=== PATIENT | male | born 1995 | race Two or more races ===

== ENCOUNTER 2025-08-16 18:14 | Inpatient (IN) ==
--- NOTE | 2025-08-16 18:25 | Emergency Department Note ---
Impression & Plan Seizure, Acute pain of left shoulder, Hydronephrosis with obstructing calculus, Abdominal pain ED Provider Note NAME: ALEX [id number] VIKRAM AGE: 30 SEX: M : 1995 ARRIVES VIA: Ambulance INFORMANT: Patient,EMS ED PROVIDER(S): Albert Pascal DO CHIEF COMPLAINT: Seizure HPI: The patient is a 30-year-old male who presented to the emergency department from the [facility] for an evaluation. The patient had 2 seizures prior to arrival. It is unclear if the patient has seizure history. There is no reported seizure history there is no reported trauma. The patient arrives to the emergency department and he is very uncomfortable appearing. The patient does not speak Bulgarian. The network support manager line was used. ROS: See above HPI for pertinent positives & negatives. A total of 10 systems reviewed and were otherwise negative. PAST MEDICAL HISTORY: See Below PAST SURGICAL HISTORY: See Below FAMILY HISTORY: See Below SOCIAL HISTORY: See Below HOME MEDICATIONS: See Below ALLERGIES: See Below VITALS: See Below PHYSICAL EXAMINATION: GENERAL: The patient is awake and alert. He is very anxious and appears uncomfortable. EYES: The conjunctivae are injected bilaterally . The pupils are round and reactive. EARS, NOSE, MOUTH AND THROAT: The nose is without any evidence of any deformity. NECK: The neck is nontender and supple. RESPIRATORY: Normal respiratory effort is noted there is no evidence of wheezing rhonchi or rales CARDIOVASCULAR: Regular rate and rhythm noted there no murmurs rubs or gallops normal S1 normal S2. GASTROINTESTINAL: The abdomen is soft and mildly distended. There is diffuse tenderness to palpation. MUSCULOSKELETAL/EXTREMITIES: There is no evidence of gross deformity full range of motion is noted in the hips and shoulders. SKIN: There is no obvious evidence of any rash. There are no petechiae, pallor or cyanosis noted. NEUROLOGIC: Patient is awake alert and oriented x3. Patellar tendon reflexes were 2+ bilaterally. MEDICAL DECISION MAKING: The patient is a 30-year-old male who [facility]. The patient has been there for approximately 2 months. Before that he was living in [place] for approximately 1 year. The patient is Mohawk-speaking and the network support manager line was used. The patient initially arrived and appeared very uncomfortable. I was not sure if he was postictal as he had 2 reported [facility]. The patient was treated with IV fluids. Ultimately he was also treated with pain medication given the presence of a very large ureteral calculus with hydronephrosis. I would wonder if the patient was actually having severe pain and what they viewed at the present could be consistent with syncope rather than seizure. I discussed patient's laboratory and radiographic studies with him. Given his findings I discussed his condition with the on-call [facility] hospitalist. They have agreed to evaluate the patient in the emergency department for further management and disposition. Triage Nursing notes reviewed. Prior medical records reviewed Vital Signs: reviewed and remarkable for no significant abnormalities Differential diagnosis: Epilepsy, infection, hypoglycemia, electrolyte abnormalities, cardiac sources, intracerebral event, trauma, toxicologic, neurologic, syncope, as well as other pathologies. ER treatment provided: See below Diagnostics interpreted by me: ECG: EKG was obtained in the emergency department. My interpretation is normal sinus rhythm at 91 bpm. There is no ectopy. There is no acute ST segment abnormalities noted. QTc was 425 ms. Cardiac Monitoring: An order was placed for continuous cardiac monitoring. The monitor shows a rate of 77 bpm with sinus rhythm. Laboratory studies: As stated above and show below. Imaging studies: See below. Radiographic imaging was reviewed by myself Consultation(s): I discussed this case with Dr. Bhatt [facility] Past Med/Surg History Problem List (Updated 08/16/25 @ 21:07 by Kym Blanco PA-C) Abdominal pain (Acute) Hydronephrosis with obstructing calculus (Acute) Acute pain of left shoulder (Acute) Seizure (Acute) Medical History (Updated 08/16/25 @ 21:07 by Kym Blanco PA-C) No pertinent past medical history Surgical History No pertinent past surgical history Social History (Updated 08/16/25 @ 21:08 by Kym Blanco PA-C) Smoking Status: Former smoker Tobacco Type: E-cigarettes / Vaping Allergies Allergies Allergy/AdvReac Type Severity Reaction Status Date / Time No Known Allergies Allergy Unverified 08/16/25 21:05 Home Meds Home Medications Medication Instructions Recorded Confirmed No Known Home Medications 08/16/25 08/16/25 Results & Data (ED) Vital Signs Vital Signs - 24 hr 08/16/25 18:25 08/16/25 18:37 08/16/25 18:57 Temperature 37.1 C Temperature Source Oral Pulse Rate 95 H 85 86 Pulse Rate [Apical] Respiratory Rate 21 15 Respiratory Effort / Characteristics Spontaneous Labored Respiratory Depth Normal Respiratory Pattern Regular Blood Pressure 169/109 H 143/96 H Blood Pressure [Right Arm] Blood Pressure Mean 129 115 Blood Pressure Mean [Right Arm] Blood Pressure Position [Right Arm] Pulse Oximetry 100 98 Oxygen Delivery Method Room Air Room Air Sepsis Recent Fever Within 48 Hours No Sepsis New/Unexplained Change in Mental Status N/A Sepsis Action Taken by Nursing No Action Required 08/16/25 20:02 08/16/25 20:02 08/16/25 20:31 Temperature Temperature Source Pulse Rate 79 Pulse Rate [Apical] 77 Respiratory Rate 18 18 Respiratory Effort / Characteristics Non-Labored Spontaneous Respiratory Depth Normal Respiratory Pattern Regular Blood Pressure 133/87 Blood Pressure [Right Arm] 128/83 Blood Pressure Mean 99 Blood Pressure Mean [Right Arm] 98 Blood Pressure Position [Right Arm] Lying Pulse Oximetry 97 98 Oxygen Delivery Method Room Air Room Air Sepsis Recent Fever Within 48 Hours Sepsis New/Unexplained Change in Mental Status Sepsis Action Taken by [facility] Medications Current Medication List: was personally reviewed by me Laboratory Data Attestation: I reviewed the patient's lab results. 08/16/25 18:26 08/16/25 18:26 Lab Results 08/16/25 08/16/25 08/16/25 Range/Units 18:26 18:35 Unknown WBC 14.40 H (4.8-10.8) K/ul RBC 5.62 (4.70-6.10) M/uL Hgb 15.6 (14.0-18.0) g/dL POC Hgb 16.3 (14.0-18.0) g/dl Hct 44.5 (42.0-52.0) % POC Hct 48 (42-52) % MCV 79.2 L (80.0-100.0) fL MCH 27.8 (25.0-34.0) pg MCHC 35.1 (32.0-36.0) g/dL RDW Std Deviation 37.2 (36.4-46.3) fL RDW Coeff of Omid 13.1 (11.5-14.5) % Plt Count 340 (130-400) K/uL MPV 9.4 (9.4-12.4) fL Immature Gran % (Auto) 0.3 % Neut % (Auto) 76.6 % Lymph % (Auto) 16.3 % [facility] % (Auto) 6.4 % Eos % (Auto) 0.1 % Baso % (Auto) 0.3 % Neut # (Auto) 11.02 H (1.40-6.50) K/uL Lymph # (Auto) 2.35 (1.20-3.40) K/uL [facility] # (Auto) 0.92 H (0.11-0.59) K/uL Eos # (Auto) 0.02 (0.00-0.50) K/uL Baso # (Auto) 0.04 (0.00-0.20) K/uL Immature Gran # (Auto) 0.05 (0.01-0.20) K/uL PT 10.8 (9.0-12.0) Seconds INR 1.0 (0.9-1.1) APTT 25 (21-31) Seconds PTT Ratio 0.9 VBG pH 7.53 H (7.36-7.41) VBG pCO2 29 L (38-50) mmHg VBG pO2 41 mmHg VBG HCO3 24 mmol/L VBG O2 Saturation 74.8 % VBG Base Excess 2.4 mEq/L POC Sodium 141 (135-144) mmol/L Sodium 139 (136-145) mmol/L POC Potassium 3.4 (3.3-5.0) mmol/L Potassium 3.5 (3.5-5.1) mmol/L POC Chloride 104 (101-112) mmol/L Chloride 105 (98-107) mmol/L Carbon Dioxide 22 (21-32) mmol/L POC Total CO2 20 L (24-31) mmol/L Anion Gap 12 H (3-11) POC Anion Gap 22.0 (16-25) mmol/L POC BUN 10 (7-18) mg/dl BUN 11 (6-23) mg/dl Creatinine 1.24 (0.6-1.4) mg/dl POC Creatinine 1.3 (0.6-1.3) mg/dl Est Cr Clr Drug Dosing 93.6 ml/min eGFR 80.71 BUN/Creatinine Ratio 8.9 L (10-20) Glucose 100 H (70-99(Fasting)) mg/dl POC Glucose (other) 99 (70-99) mg/dl Osmolality 291 (280-300) mOsm/kg Calcium 9.5 (8.6-10.3) mg/dl POC Ioniz Calcium Vivi 1.14 (1.12-1.32) mmol/l Magnesium 2.0 (1.7-2.4) mg/dl Total Bilirubin 1.2 H (0.2-1.0) mg/dl AST 26 (13-39) U/L ALT 63 H (7-52) U/L Alkaline Phosphatase 96 (34-104) U/L Total Creatine Kinase 176 (30-223) U/L Troponin I High Sens 3.3 (0-20) pg/ml Total Protein 8.2 (6.0-8.3) gm/dl Albumin 4.5 (3.4-5.0) gm/dl Globulin 3.7 (2.5-4.0) gm/dl Albumin/Globulin Ratio 1.2 (0.9-2) Lipase 20 (11-82) U/L Procalcitonin 0.02 (0-0.5) ng/ml TSH 1.149 (0.300-4.500) uIu/ml Urine Color Yellow Urine Appearance Cloudy A (Clear) Urine pH >= 9.0 H (4.5-7.5) Ur Specific [place] 1.020 (1.000-1.030) Urine Protein 1+ H (Negative) Urine Glucose (UA) Negative (Negative) Urine Ketones Negative (Negative) Urine Blood Trace H (Negative) Urine Nitrite Negative (Negative) Urine Bilirubin Negative (Negative) Urine Urobilinogen Negative (Negative) Ur Leukocyte Esterase Trace H (Negative) Urine WBC (Auto) 0-5 (0-5) /hpf Urine RBC (Auto) 11-20 H (0-2) /hpf U Hyaline Cast (Auto) 0-2 (0-2) /lpf U Epithel Cells (Auto) 0-2 (0-2) /hpf Urine Bacteria (Auto) None Seen (None Seen) Urine Osmolality 762 (500-800) mOsm/kg Urine Comment Urine Opiates Screen Neg (Neg) Ur Methadone, Qual Neg (Neg) Urine Fentanyl Screen Neg (Neg) Urine Barbiturates Neg (Neg) Ur Phencyclidine (PCP) Neg (Neg) U Amphetamin/Meth Scrn Neg (Neg) MDMA (Ecstasy) Screen Neg (Neg) U Benzodiazepines Scrn Neg (Neg) Ur Cocaine Metabolite Neg (Neg) U Marijuana (THC) Screen Neg (Neg) Administered Medications Potassium Chloride/Sodium Chloride (Normal Saline W/20 Meq Kcl) 20 meq in 1,000 mls @ 75 mls/hr IV .[id number] ONE Stop: 08/17/25 09:59 Last Admin: 08/16/25 21:10 Dose: 75 mls/hr Documented By: KAYCEE Discontinued Medications Sodium Chloride (Nss) 1,000 mls @ 999 mls/hr IV .[id number] MAYA Stop: 08/16/25 19:30 Last Infusion: 08/16/25 19:39 Dose: Infused Documented By: Admin: 08/16/25 18:30 Dose: 999 mls/hr Documented By: JUAN CARLOS Ioversol (Optiray 320 125ml) 115 ml IV ONCE ONE Stop: 08/16/25 19:16 Last Admin: 08/16/25 19:16 Dose: 115 ml Documented By: LUIS Levetiracetam (Levetiracetam 500 Mg/5 Ml Vial) 2,000 mg IV NOW STA Stop: 08/16/25 18:19 Last Admin: 08/16/25 18:35 Dose: 2,000 mg Documented By: JUAN CARLOS Morphine Sulfate (Morphine Sulfate 4 Mg/Ml 1 Ml Carp\Vial) 4 mg IV NOW STA Stop: 08/16/25 19:38 Last Admin: 08/16/25 19:43 Dose: 4 mg Documented By: Ondansetron HCl (Ondansetron Inj 2 Mg/Ml 2 Ml Vial) 4 mg IV NOW STA Stop: 08/16/25 19:38 Last Admin: 08/16/25 19:43 Dose: 4 mg Documented By: Imaging Data Attestation: I personally reviewed and interpreted this imaging study as follows: My Impression: CT of the brain was obtained in the emergency department. My interpretation is no intracranial hemorrhage or mass effect, final report below. Radiologist's Impression: Abdomen/Pelvis CT 08/16/25 18:18 EXAMINATION: CT of the abdomen and pelvis performed after the administration of IV contrast TECHNIQUE: Helical CT images from the lung bases through the symphysis pubis were obtained with contrast. Coronal and sagittal reformatted images were generated at a workstation for further assessment. Dose reduction techniques were achieved by using automatic exposure control and/or adjustment of mA and/or kV according to patient size and/or use of iterative reconstruction technique. COMPARISON: None HISTORY: Abdominal pain FINDINGS: Lower chest: No consolidation. No pleural effusion or pneumothorax. Liver: No suspicious liver lesions. Portal veins appear patent. Gallbladder: No gallstones. No evidence of acute cholecystitis. Spleen: Normal size. Pancreas: No suspicious pancreatic lesions. The pancreatic duct is not dilated. Adrenal glands: No adrenal nodules. Kidneys: Obstructing 10 x 6 mm stone at the right ureteropelvic junction. There is moderate right hydronephrosis, as well as right renal pelvic urothelial thickening and hyperenhancement. There is surrounding inflammatory fat stranding. Right renal swelling and decreased enhancement. Few additional tiny nonobstructing right renal stones are seen. Normal left kidney. Bladder / Pelvic organs: Unremarkable. Bowel: No bowel obstruction. No abnormal bowel wall thickening. The appendix is unremarkable. Lymph nodes: No retroperitoneal, mesenteric, or pelvic lymphadenopathy. Peritoneum / Retroperitoneum: No free fluid or air within the abdomen. Vessels: No infrarenal aortic aneurysm. Bones and soft tissues: No suspicious lesion in the bones. IMPRESSION: 10 x 6 mm stone at the right ureteropelvic junction. There is moderate right hydronephrosis, as well as right renal pelvic urothelial thickening and hyperenhancement. There is surrounding inflammatory fat stranding. Electronically signed by Pipe Bautista 08-16-2025 7:40 PM Shoulder X-Ray 08/16/25 18:18 Exam: Right shoulder. Reason for exam: Trauma Previous studies: None FINDINGS: No acute fracture, dislocation or destructive lesion noted. IMPRESSION: Negative for acute bony trauma right shoulder. Electronically signed by Vignesh Ruelas 08-16-2025 8:41 PM Shoulder X-Ray 08/16/25 18:18 Exam: Left shoulder. Reason for exam: Trauma Previous studies: None FINDINGS: Marked abnormal widening of the acromioclavicular joint with an irregular interposed bony fragment. The age of this abnormality is uncertain. Could represent acute fracture and AC separation versus old separation injury with dystrophic ossification. Correlation with any current clinical tenderness recommended. The glenohumeral articulation appears intact. IMPRESSION: Markedly abnormal appearance of the acromioclavicular joint. The joint space is markedly widened with penciling of the distal clavicle and interposed irregular bony fragment. Findings might represent previous and/or current acromioclavicular traumatic separation with fracture fragment versus dystrophic calcification. Possibility of postsurgical changes considered as well. Correlation to clinical history and current point of tenderness recommended. Further definitive imaging evaluation could be obtained with MRI study. Electronically signed by Vignesh Ruelas 08-16-2025 8:[address] 08/16/25 18:19 CT cervical spine without IV contrast History: Trauma Comparison: None Technique: Using multidetector thin collimation helical acquisition technique, axial, coronal and sagittal CT images through the cervical spine were obtained without intravenous contrast. Dose reduction techniques were achieved by using automatic exposure control and/or adjustment of mA and/or kV according to patient size and/or use of iterative reconstruction technique. Findings: The cervical vertebrae are normally aligned. Straightened cervical lordosis. No acute fracture or subluxation. No prevertebral edema. There is no disc height narrowing at any level. The findings on a level by level basis are as follows: C2-3: No spinal canal or neural foraminal stenosis C3-4: No spinal canal or neural foraminal stenosis C4-5: No spinal canal or neural foraminal stenosis C5-6: No spinal canal or neural foraminal stenosis C6-7: No spinal canal or neural foraminal stenosis C7-1: No spinal canal or neural foraminal stenosis No abnormality of the paraspinous soft tissues. Impression: No acute fracture or traumatic subluxation. Electronically signed by Pipe Bautista 08-16-2025 7:36 PM Chest CTA 08/16/25 18:19 CT pulmonary angiogram with IV contrast History: Chest pain COMPARISON: None TECHNIQUE: CT angiography of the chest was performed without IV contrast followed by IV contrast, including 3D post processing CTA image reconstruction. Dose reduction techniques were achieved by using automatic exposure control and/or adjustment of mA and/or kV according to patient size and/or use of iterative reconstruction technique. FINDINGS: Diagnostic quality: Adequate There is no evidence for pulmonary embolism. The heart is not enlarged. There is no pericardial effusion. There are no abnormally enlarged hilar or mediastinal lymph nodes. The central tracheobronchial tree is clear. The lungs are clear. There is no pleural effusion. Limited visualized upper abdomen. No destructive osseous changes are seen. IMPRESSION: No evidence for pulmonary embolism. Electronically signed by Pipe Bautista 08-16-2025 7:[address] 08/16/25 18:19 CT head without contrast History: Seizure Comparison: None Technique: Using multidetector thin collimation helical acquisition technique, axial, coronal and sagittal CT images from the skull base to the vertex were obtained without intravenous contrast. Dose reduction techniques were achieved by using automatic exposure control and/or adjustment of mA and/or kV according to patient size and/or use of iterative reconstruction technique. Findings: No intracranial hemorrhage, mass-effect, or midline shift. The ventricles are proportionate to the cerebral sulci. The giron to white matter differentiation of the cerebral hemispheres is preserved. The basal cisterns are patent. The visualized paranasal sinuses are clear. Mastoid air cells are clear. Impression: No acute intracranial pathology. Electronically signed by Pipe Bautista 08-16-2025 7:33 PM Discharge Plan Visit Data Chief Complaint: Seizure Stated Complaint: no history of seizures ED Provider: Albert Pascal Discharge Problem: Seizure, Acute pain of left shoulder, Hydronephrosis with obstructing calculus, Abdominal pain Patient Disposition: Being Evaluated by Hospitalist Condition: Fair Forms Stand Alone Forms: [facility] 1Cast Prescriptions Prescriptions: No Action No Known Home Medications Referrals Referrals: PCP,NO [Physician] -
[2025-08-16] MEDS: SODIUM CHLORIDE 0.9% 1,000 ML IV SCH (18:30)
[2025-08-16 18:49] LABS: Base Excess VBG 2.4 mEq/L; HCO3 VBG 24 mmol/L; Oxygen Saturation VBG 74.8 %; PCO2 VBG 29 mmHg (38-50); PO2 VBG 41 mmHg; pH VBG 7.53 (7.36-7.41)
[2025-08-16 18:53] LABS: Hematocrit (blood only) 44.5 % (42.0-52.0); Hemoglobin 15.6 g/dL (14.0-18.0); Immature Granulocytes # (auto) 0.05 K/uL (0.01-0.20); Immature Granulocytes % (auto) 0.3 %; Mean Corpuscular Hemoglobin 27.8 pg (25.0-34.0); Mean Corpuscular Volume 79.2 fL (80.0-100.0); Platelet Count 340 K/uL (130-400); RDW Standard Deviation 37.2 fL (36.4-46.3); Red Blood Count 5.62 M/uL (4.70-6.10); White Blood Count 14.40 K/ul (4.8-10.8)
[2025-08-16 19:10] LABS: Alanine Aminotransferase 63.0 U/L (7-52); Albumin Globulin Ratio 1.2 (0.9-2); Albumin Level 4.5 gm/dl (3.4-5.0); Alkaline Phosphatase 96.0 U/L (34-104); Anion Gap 12.0 (3-11); Bilirubin,Total 1.2 mg/dl (0.2-1.0); Blood Urea Nitrogen 11.0 mg/dl (6-23); Calcium 9.5 mg/dl (8.6-10.3); Carbon Dioxide 22.0 mmol/L (21-32); Chloride 105.0 mmol/L (98-107); Creatine Kinase 176.0 U/L (30-223); Creatinine Clr Calc Pharmacy 93.6 ml/min; Globulin 3.7 gm/dl (2.5-4.0); Glucose 100.0 mg/dl (70-99(Fasting)); Lipase 20.0 U/L (11-82); Magnesium 2.0 mg/dl (1.7-2.4); Potassium 3.5 mmol/L (3.5-5.1); Sodium 139.0 mmol/L (136-145); Total Protein 8.2 gm/dl (6.0-8.3)
[2025-08-16] MEDS: OPTIRAY 320 125ml IV ONE (19:16)
[2025-08-16 19:22] LABS: INR 1.0 (0.9-1.1); Partial Thromboplastin Time 25 Seconds (21-31); Prothrombin Time 10.8 Seconds (9.0-12.0)
[2025-08-16 19:26] LABS: Thyroid Stimulating Hormone 1.149 uIu/ml (0.300-4.500)
[2025-08-16 19:31] LABS: Appearance Urine Cloudy (Clear); Bacteria Urine Automated None Seen (None Seen); Cast Urine Automated 0-2 /lpf (0-2); Epithelial Cell Urine Auto 0-2 /hpf (0-2); Glucose Urine UA Negative (Negative); WBC Urine Automated 0-5 /hpf (0-5)
--- NOTE | 2025-08-16 19:33 | CT Scan Report ---
CT head without contrast History: Seizure Comparison: None Technique: Using multidetector thin collimation helical acquisition technique, axial, coronal and sagittal CT images from the skull base to the vertex were obtained without intravenous contrast. Dose reduction techniques were achieved by using automatic exposure control and/or adjustment of mA and/or kV according to patient size and/or use of iterative reconstruction technique. Findings: No intracranial hemorrhage, mass-effect, or midline shift. The ventricles are proportionate to the cerebral sulci. The giron to white matter differentiation of the cerebral hemispheres is preserved. The basal cisterns are patent. The visualized paranasal sinuses are clear. Mastoid air cells are clear. Impression: No acute intracranial pathology. Electronically signed by Pipe Bautista 08-16-2025 7:33 PM
--- NOTE | 2025-08-16 19:34 | CT Scan Report ---
CT pulmonary angiogram with IV contrast History: Chest pain COMPARISON: None TECHNIQUE: CT angiography of the chest was performed without IV contrast followed by IV contrast, including 3D post processing CTA image reconstruction. Dose reduction techniques were achieved by using automatic exposure control and/or adjustment of mA and/or kV according to patient size and/or use of iterative reconstruction technique. FINDINGS: Diagnostic quality: Adequate There is no evidence for pulmonary embolism. The heart is not enlarged. There is no pericardial effusion. There are no abnormally enlarged hilar or mediastinal lymph nodes. The central tracheobronchial tree is clear. The lungs are clear. There is no pleural effusion. Limited visualized upper abdomen. No destructive osseous changes are seen. IMPRESSION: No evidence for pulmonary embolism. Electronically signed by Pipe Bautista 08-16-2025 7:34 PM
--- NOTE | 2025-08-16 19:36 | CT Scan Report ---
CT cervical spine without IV contrast History: Trauma Comparison: None Technique: Using multidetector thin collimation helical acquisition technique, axial, coronal and sagittal CT images through the cervical spine were obtained without intravenous contrast. Dose reduction techniques were achieved by using automatic exposure control and/or adjustment of mA and/or kV according to patient size and/or use of iterative reconstruction technique. Findings: The cervical vertebrae are normally aligned. Straightened cervical lordosis. No acute fracture or subluxation. No prevertebral edema. There is no disc height narrowing at any level. The findings on a level by level basis are as follows: C2-3: No spinal canal or neural foraminal stenosis C3-4: No spinal canal or neural foraminal stenosis C4-5: No spinal canal or neural foraminal stenosis C5-6: No spinal canal or neural foraminal stenosis C6-7: No spinal canal or neural foraminal stenosis C7-1: No spinal canal or neural foraminal stenosis No abnormality of the paraspinous soft tissues. Impression: No acute fracture or traumatic subluxation. Electronically signed by Pipe Bautista 08-16-2025 7:36 PM
--- NOTE | 2025-08-16 19:40 | CT Scan Report ---
EXAMINATION: CT of the abdomen and pelvis performed after the administration of IV contrast TECHNIQUE: Helical CT images from the lung bases through the symphysis pubis were obtained with contrast. Coronal and sagittal reformatted images were generated at a workstation for further assessment. Dose reduction techniques were achieved by using automatic exposure control and/or adjustment of mA and/or kV according to patient size and/or use of iterative reconstruction technique. COMPARISON: None HISTORY: Abdominal pain FINDINGS: Lower chest: No consolidation. No pleural effusion or pneumothorax. Liver: No suspicious liver lesions. Portal veins appear patent. Gallbladder: No gallstones. No evidence of acute cholecystitis. Spleen: Normal size. Pancreas: No suspicious pancreatic lesions. The pancreatic duct is not dilated. Adrenal glands: No adrenal nodules. Kidneys: Obstructing 10 x 6 mm stone at the right ureteropelvic junction. There is moderate right hydronephrosis, as well as right renal pelvic urothelial thickening and hyperenhancement. There is surrounding inflammatory fat stranding. Right renal swelling and decreased enhancement. Few additional tiny nonobstructing right renal stones are seen. Normal left kidney. Bladder / Pelvic organs: Unremarkable. Bowel: No bowel obstruction. No abnormal bowel wall thickening. The appendix is unremarkable. Lymph nodes: No retroperitoneal, mesenteric, or pelvic lymphadenopathy. Peritoneum / Retroperitoneum: No free fluid or air within the abdomen. Vessels: No infrarenal aortic aneurysm. Bones and soft tissues: No suspicious lesion in the bones. IMPRESSION: 10 x 6 mm stone at the right ureteropelvic junction. There is moderate right hydronephrosis, as well as right renal pelvic urothelial thickening and hyperenhancement. There is surrounding inflammatory fat stranding. Electronically signed by Pipe Bautista 08-16-2025 7:40 PM
[2025-08-16] MEDS: MoRPHine SULFATE 4 MG/ML 1 ML CARP\\VIAL IV STA (19:43)
[2025-08-16] MEDS: ONDANSETRON INJ 2 MG/ML 2 ML VIAL IV STA (19:43)
[2025-08-16 19:53] LABS: Amphetamines+Metham, Urine Neg (Neg); MDMA (Ecstacy), Urine Neg (Neg); Marijuana, Urine Neg (Neg)
--- NOTE | 2025-08-16 20:17 | History & Physical Report ---
Date of Service August 16, 2025 Assessment & Plan (1) Abdominal pain: (2) Hydronephrosis with obstructing calculus: (3) Left shoulder pain: Plan: #Possible Seizure-like activity HPI, PMH, SH, FH, PE completed by Kym Blanco PA-C Assessment and Plan per Dr Ribeiro. See addendum. History of Present Illness Chief Complaint: Shaking episode Primary Care Provider: [facility] Patient is 30 year old male without significant PMH presented to ER from [facility] for reported shaking episode today. Patient is Israeli speaking and interpreter translator used through language line. Patient reports this morning he woke up with diffuse abdominal pain, nausea, vomiting. He describes the abdominal pain as constant ache with intermittent stabbing that radiated up to chest. Rated pain 10 out of 10 on pain scale. He states he was also feeling dizzy. He reports trying to get evaluated by medical today at facility. He states the next thing he remembers is waking up with a lot of people around him. Denies loss control of bowel or bladder. Reports his tongue feels sore but denies any noted bleeding or tongue lacerations. This provider called and discussed patient with staff at [facility]. They report that patient was attempting to call for medical to be seen and asking officers to go to sick call when he "went down" and had "shaking of body and was not responding". Report states when medical came to evaluate patient his O2 sats noted dropped into 60's and his BSG was 114. When arrived to medical carpenter he only could say "yes or no" and then became tearful, and more responsive and he was able to follow commands. Patient denies diarrhea or constipation. He took Pepto-bismol from another detainee this morning without relief. Patient reports chronic left shoulder pain from prior injury. He reports past several days left shoulder pain has been increasing, worse with sleeping on it at night. He reports limited range of motion of left shoulder secondary to pain. He states past 1-2 weeks having trouble breathing at night only. Denies fever/chills, diaphoresis, diarrhea, constipation, hematemesis, melena, hematochezia, JONES, vision changes, palpitations, cough, sore throat, rhinorrhea, paresthesias, weakness, extremity edema, rashes, dysuria, urinary frequency, urinary retention, hematuria. Per [facility] staff patient has been at [facility] Facility since 06/2025 and had no prior medical evaluations or PMH. Patient denies history prior medical problems or surgical history. Denies significant FH including history of seizure or kidney stones. Reports prior history of vaping. Denies ETOH, illicit drug use. Currently patient reports is feeling improved. States nausea better. In ER given 1L NSS, Zofran 4 mg IV, morphine 4 mg IV, Keppra 2000 mg IV. He reports pain is now 4 out of 10 on pain scale and feels comfortable lying supine in bed. Allergies Allergy/AdvReac Type Severity Reaction Status Date / Time No Known Allergies Allergy Unverified 08/16/25 21:05 Home Medications Medication Instructions Recorded Confirmed Type No Known Home Medications 08/16/25 08/16/25 History Past Med/Surg History Problem List (Updated 08/16/25 @ 21:23 by Kym Blanco PA-C) Left shoulder pain Abdominal pain (Acute) Hydronephrosis with obstructing calculus (Acute) Acute pain of left shoulder (Acute) Seizure (Acute) Medical History (Updated 08/16/25 @ 21:23 by Kym Blanco PA-C) No pertinent past medical history Surgical History No pertinent past surgical history Social History (Updated 08/16/25 @ 21:08 by Kym Blanco PA-C) Smoking Status: Former smoker Tobacco Type: E-cigarettes / Vaping Review of Systems Review of Systems: All systems reviewed & are unremarkable except as noted in HPI & below Physical Exam Physical Exam: General: no distress, WDWN Head: normocephalic, atraumatic Eyes: PERRL, EOM's intact, conjunctiva non-injected, anicteric ENT: normal inspection external ears, nose, mucous membranes dry Neck: supple, trachea midline Lungs: clear, no respiratory distress, no wheezing/rhonchi/rales CV: RRR, no murmur, no pretibial edema Abd: normal BS, soft, +tenderness entire abdomen with guarding, no CVA or flank tenderness to palpation Ext: no cyanosis, no calf tenderness; RUE: non-tender, ROM intact. LUE: +tenderness to anterior, lateral shoulder to palpation with limited ROM. distal pulses palpable Neuro: A&O x 3, no focal deficits noted, normal affect Skin: warm, dry Results & Data Results & Data Vital Signs (Past 12 Hours) Vital Signs Temp Pulse Pulse Resp BP BP Pulse Ox 08/16/25 20:02 77 18 128/83 97 08/16/25 20:02 08/16/25 18:57 86 08/16/25 18:37 85 15 143/96 H 98 08/16/25 18:25 37.1 C 95 H 21 169/109 H 100 O2 Del Method 08/16/25 20:02 Room Air 08/16/25 20:02 Room Air 08/16/25 18:57 08/16/25 18:37 Room Air 08/16/25 18:25 Room Air Laboratory Results Short CBC 08/16/25 Range/Units 18:26 WBC 14.40 H (4.8-10.8) K/ul Hgb 15.6 (14.0-18.0) g/dL Hct 44.5 (42.0-52.0) % Plt Count 340 (130-400) K/uL BMP 08/16/25 18:26 Sodium 139 Potassium 3.5 Chloride 105 Carbon Dioxide 22 BUN 11 Creatinine 1.24 Glucose 100 H Calcium 9.5 Cardiac Enzymes 08/16/25 Range/Units 18:26 Total Creatine Kinase 176 (30-223) U/L Liver Function 08/16/25 Range/Units 18:26 Total Bilirubin 1.2 H (0.2-1.0) mg/dl AST 26 (13-39) U/L ALT 63 H (7-52) U/L Alkaline Phosphatase 96 (34-104) U/L Albumin 4.5 (3.4-5.0) gm/dl Urine 08/16/25 Range/Units Unknown Urine Color Yellow Urine Appearance Cloudy A (Clear) Urine pH >= 9.0 H (4.5-7.5) Ur Specific [place] 1.020 (1.000-1.030) Urine Protein 1+ H (Negative) Urine Glucose (UA) Negative (Negative) Diagnostic Findings Abdomen/Pelvis CT 08/16/25 18:18 EXAMINATION: CT of the abdomen and pelvis performed after the administration of IV contrast TECHNIQUE: Helical CT images from the lung bases through the symphysis pubis were obtained with contrast. Coronal and sagittal reformatted images were generated at a workstation for further assessment. Dose reduction techniques were achieved by using automatic exposure control and/or adjustment of mA and/or kV according to patient size and/or use of iterative reconstruction technique. COMPARISON: None HISTORY: Abdominal pain FINDINGS: Lower chest: No consolidation. No pleural effusion or pneumothorax. Liver: No suspicious liver lesions. Portal veins appear patent. Gallbladder: No gallstones. No evidence of acute cholecystitis. Spleen: Normal size. Pancreas: No suspicious pancreatic lesions. The pancreatic duct is not dilated. Adrenal glands: No adrenal nodules. Kidneys: Obstructing 10 x 6 mm stone at the right ureteropelvic junction. There is moderate right hydronephrosis, as well as right renal pelvic urothelial thickening and hyperenhancement. There is surrounding inflammatory fat stranding. Right renal swelling and decreased enhancement. Few additional tiny nonobstructing right renal stones are seen. Normal left kidney. Bladder / Pelvic organs: Unremarkable. Bowel: No bowel obstruction. No abnormal bowel wall thickening. The appendix is unremarkable. Lymph nodes: No retroperitoneal, mesenteric, or pelvic lymphadenopathy. Peritoneum / Retroperitoneum: No free fluid or air within the abdomen. Vessels: No infrarenal aortic aneurysm. Bones and soft tissues: No suspicious lesion in the bones. IMPRESSION: 10 x 6 mm stone at the right ureteropelvic junction. There is moderate right hydronephrosis, as well as right renal pelvic urothelial thickening and hyperenhancement. There is surrounding inflammatory fat stranding. Electronically signed by Pipe Bautista 08-16-2025 7:40 PM Shoulder X-Ray 08/16/25 18:18 Exam: Right shoulder. Reason for exam: Trauma Previous studies: None FINDINGS: No acute fracture, dislocation or destructive lesion noted. IMPRESSION: Negative for acute bony trauma right shoulder. Electronically signed by Vignesh Ruelas 08-16-2025 8:41 PM Shoulder X-Ray 08/16/25 18:18 Exam: Left shoulder. Reason for exam: Trauma Previous studies: None FINDINGS: Marked abnormal widening of the acromioclavicular joint with an irregular interposed bony fragment. The age of this abnormality is uncertain. Could represent acute fracture and AC separation versus old separation injury with dystrophic ossification. Correlation with any current clinical tenderness recommended. The glenohumeral articulation appears intact. IMPRESSION: Markedly abnormal appearance of the acromioclavicular joint. The joint space is markedly widened with penciling of the distal clavicle and interposed irregular bony fragment. Findings might represent previous and/or current acromioclavicular traumatic separation with fracture fragment versus dystrophic calcification. Possibility of postsurgical changes considered as well. Correlation to clinical history and current point of tenderness recommended. Further definitive imaging evaluation could be obtained with MRI study. Electronically signed by Vignesh Ruelas 08-16-2025 8:[address] 08/16/25 18:19 CT cervical spine without IV contrast History: Trauma Comparison: None Technique: Using multidetector thin collimation helical acquisition technique, axial, coronal and sagittal CT images through the cervical spine were obtained without intravenous contrast. Dose reduction techniques were achieved by using automatic exposure control and/or adjustment of mA and/or kV according to patient size and/or use of iterative reconstruction technique. Findings: The cervical vertebrae are normally aligned. Straightened cervical lordosis. No acute fracture or subluxation. No prevertebral edema. There is no disc height narrowing at any level. The findings on a level by level basis are as follows: C2-3: No spinal canal or neural foraminal stenosis C3-4: No spinal canal or neural foraminal stenosis C4-5: No spinal canal or neural foraminal stenosis C5-6: No spinal canal or neural foraminal stenosis C6-7: No spinal canal or neural foraminal stenosis C7-1: No spinal canal or neural foraminal stenosis No abnormality of the paraspinous soft tissues. Impression: No acute fracture or traumatic subluxation. Electronically signed by Pipe Bautista 08-16-2025 7:36 PM Chest CTA 08/16/25 18:19 CT pulmonary angiogram with IV contrast History: Chest pain COMPARISON: None TECHNIQUE: CT angiography of the chest was performed without IV contrast followed by IV contrast, including 3D post processing CTA image reconstruction. Dose reduction techniques were achieved by using automatic exposure control and/or adjustment of mA and/or kV according to patient size and/or use of iterative reconstruction technique. FINDINGS: Diagnostic quality: Adequate There is no evidence for pulmonary embolism. The heart is not enlarged. There is no pericardial effusion. There are no abnormally enlarged hilar or mediastinal lymph nodes. The central tracheobronchial tree is clear. The lungs are clear. There is no pleural effusion. Limited visualized upper abdomen. No destructive osseous changes are seen. IMPRESSION: No evidence for pulmonary embolism. Electronically signed by Pipe Bautista 08-16-2025 7:[address] 08/16/25 18:19 CT head without contrast History: Seizure Comparison: None Technique: Using multidetector thin collimation helical acquisition technique, axial, coronal and sagittal CT images from the skull base to the vertex were obtained without intravenous contrast. Dose reduction techniques were achieved by using automatic exposure control and/or adjustment of mA and/or kV according to patient size and/or use of iterative reconstruction technique. Findings: No intracranial hemorrhage, mass-effect, or midline shift. The ventricles are proportionate to the cerebral sulci. The giron to white matter differentiation of the cerebral hemispheres is preserved. The basal cisterns are patent. The visualized paranasal sinuses are clear. Mastoid air cells are clear. Impression: No acute intracranial pathology. Electronically signed by Pipe Bautista 08-16-2025 7:33 PM Supervising Physician Co-Signing Physician Notes IM ATTENDING : Patient seen and examined. History obtained from patient and records. Limited history from patient secondary to language barrier. Concur with salient points upon review of preceding documentation by Ms. Kym Blanco PA-C. In addition Left shoulder x-ray read as follows Markedly abnormal appearance of the acromioclavicular joint. The joint space is markedly widened with penciling of the distal clavicle and interposed irregular bony fragment. I take responsibility for plan of care below. FINAL ASSESSMENT AND PLAN as follows : Obstructive uropathy, no sepsis for now Worsening chronic left shoulder pain new onset seizures versus shaking pain response Admit to med/tele given seizure concerns Ativan as needed for active seizures EEG, brain MRI, Neurology consult for possible new onset seizures, hold off on additional AED Rx until patient evaluated by specialist. Analgesia Strain urine Urology consult re: obstructing kidney stone N.p.o. in anticipation of procedure Orthopedics consult re: worsening left shoulder pain DVT prophylaxis. SCDs Full code I spent a total of 30 minutes coordinating, documenting, and providing care for this patientexcludingtime spent by another provider/QHP. Text document was generated using Venda voice recognition software. It may contain grammatical or spelling errors. Kindly contact undersigned for clarification of any documentation item in question.
[2025-08-16] MEDS ORDERED: PROMETHAZINE 6.25 MG/50.25 ML BAG IV PRN (20:39)
--- NOTE | 2025-08-16 20:41 | XRay Report ---
Exam: Right shoulder. Reason for exam: Trauma Previous studies: None FINDINGS: No acute fracture, dislocation or destructive lesion noted. IMPRESSION: Negative for acute bony trauma right shoulder. Electronically signed by Vignesh Ruelas 08-16-2025 8:41 PM
--- NOTE | 2025-08-16 20:45 | XRay Report ---
Exam: Left shoulder. Reason for exam: Trauma Previous studies: None FINDINGS: Marked abnormal widening of the acromioclavicular joint with an irregular interposed bony fragment. The age of this abnormality is uncertain. Could represent acute fracture and AC separation versus old separation injury with dystrophic ossification. Correlation with any current clinical tenderness recommended. The glenohumeral articulation appears intact. IMPRESSION: Markedly abnormal appearance of the acromioclavicular joint. The joint space is markedly widened with penciling of the distal clavicle and interposed irregular bony fragment. Findings might represent previous and/or current acromioclavicular traumatic separation with fracture fragment versus dystrophic calcification. Possibility of postsurgical changes considered as well. Correlation to clinical history and current point of tenderness recommended. Further definitive imaging evaluation could be obtained with MRI study. Electronically signed by Vignesh Ruelas 08-16-2025 8:44 PM
[2025-08-16] MEDS: NSS + 20MEQ KCL 20 MEQ/1,000 ML BAG IV ONE (21:10)
[2025-08-16] MEDS ORDERED: LORazepam Inj 1 MG in SYRINGE 0.5 ML IV PRN (22:02)
[2025-08-16] MEDS: KETOROLAC TROMETHAMINE 15 MG/ML VIAL IV STA (22:15)
[2025-08-16] MEDS: GADOBUTROL 65ML VIAL IV ONE (22:57)
--- NOTE | 2025-08-17 02:10 | Magnetic Resonance Report ---
Exam(s): MRI HEAD W/WO Contrast IV Amt: 8.5ml gadavist EXAM: MR Head Without and With Intravenous Contrast CLINICAL HISTORY: Reason for exam: sz. OTHER: Other Notes: seizure today 8.5ml gadavist, no adverse events *pt speaks only kazakh, used internal wholesaler to screen* best scans possible due to metal artifact, pt has braces TECHNIQUE: Magnetic resonance images of the head/brain without and with intravenous contrast in multiple planes. CONTRAST: Patient received 8.5ml gadavist of IV contrast COMPARISON: No relevant prior studies available. FINDINGS: This study is limited secondary motion artifact and metallic artifact from dental amalgam. Brain: Unremarkable. No mass. No hemorrhage. No acute infarct. The flow voids at the base the brain are intact. No evidence of mesial temporal sclerosis, heterotopic. Matter cortical dysplasia. No evidence of abnormal enhancement. Ventricles: Unremarkable. No ventriculomegaly. Bones/joints: Unremarkable. No acute fracture. Sinuses: Unremarkable as visualized. No acute sinusitis. Mastoid air cells: Unremarkable as visualized. No mastoid effusion. Orbits: Unremarkable as visualized. IMPRESSION: No evidence of acute intracranial pathology. No etiology for patient's symptoms identified. Electronically signed by: Liz Worley MD 08/17/25 02:09 AM
[2025-08-17 07:06] LABS: Hematocrit (blood only) 41.0 % (42.0-52.0); Hemoglobin 13.8 g/dL (14.0-18.0); Immature Granulocytes # (auto) 0.02 K/uL (0.01-0.20); Immature Granulocytes % (auto) 0.3 %; Mean Corpuscular Hemoglobin 27.4 pg (25.0-34.0); Mean Corpuscular Volume 81.3 fL (80.0-100.0); Platelet Count 295 K/uL (130-400); RDW Standard Deviation 39.5 fL (36.4-46.3); Red Blood Count 5.04 M/uL (4.70-6.10); White Blood Count 7.54 K/ul (4.8-10.8)
[2025-08-17 08:19] LABS: Anion Gap 7.0 (3-11); Blood Urea Nitrogen 9.0 mg/dl (6-23); Calcium 8.8 mg/dl (8.6-10.3); Carbon Dioxide 24.0 mmol/L (21-32); Chloride 111.0 mmol/L (98-107); Creatinine Clr Calc Pharmacy 130.4 ml/min; Glucose 83.0 mg/dl (70-99(Fasting)); Potassium 4.1 mmol/L (3.5-5.1); Sodium 142.0 mmol/L (136-145)
--- NOTE | 2025-08-17 08:41 | Neurology Consultation ---
Date of Consultation August 17, 2025 Assessment & Plan (1) Seizure-like activity: Seizure like event in a 30M with no significant PMH who is currently admitted with Hydronephrosis with obstructing calculus. His exam is currently normal and imaging has also been normal. The event he had is unclear and could have been seizure vs syncope. Plan -- continue keppra -- obtain EEG either inpatient vs outpatient, can stop Keppra if EEG is normal Telehealth Consultation Telehealth Information Telehealth Information: I performed this visit using a real-time telehealth connection between my location and the patients originating location ([facility]). After connecting through interactive tele-video, patient was identified by name and date of and/or wristband check.Patient (or authorized healthcare applications sales representative) was informed that this was a telemedicine visit and it was being conducted confidentially over secure lines. My office door was closed and no one else was present in the room with me.Patient (or authorized healthcare applications sales representative) provided consent to proceed with the visit, expressed an understanding of privacy and security of the telemedicine visit, and gave permission to have a hospital applications sales representative in the room in order to assist with the visit and to conduct portions of the visit, as needed. I informed the patient (or authorized healthcare applications sales representative) that I reviewed their record and presented the opportunity for them to ask any questions regarding the visit today. The patient agreed to participate. History of Present Illness Reason for Consultation: seizure like activity Attending Physician: Sawyer Ricardo DO History of Present Illness Aj Murrell is a 30M with no significant PMH who presented to the ED with abdominal pain, dizziness and possible seizure activity. He reports that starting yesterday he has been having abdominal pain, headache and some dizziness. He denies room spinning but says his head felt fuzzy. He went to the medical facility and while there he had reported seizure activity. He has no recollection of the event and no one in the room witnessed it. He denies prior seizure or LOC events. He recent fevers, headaches, weakness or numbness. He denies prior TBI. Allergies Allergy/AdvReac Type Severity Reaction Status Date / Time No Known Allergies Allergy Unverified 08/16/25 21:05 Home Medications Medication Instructions Recorded Confirmed Type No Known Home Medications 08/16/25 08/16/25 History Patient History Medical History (Updated 08/17/25 @ 09:02 by Jai Pollack MD) No pertinent past medical history Surgical History No pertinent past surgical history Social History (Updated 08/16/25 @ 21:08 by Kym Blanco PA-C) Smoking Status: Former smoker Tobacco Type: E-cigarettes / Vaping Smoking End Date: 3 months ago; Second Hand Exposure: No; Tobacco Cessation Education Requested by Patient: No Hx Alcohol Use: No Hx Substance Use: No Preferred Language: Chilean Communication Ability: Effective Gasket Notcher Required: Yes Beliefs That Will Affect Care: None Current Living Situation: Other Current Living Situation Comment: [facility] [facility] Feels Safe at Home: Declines to Answer Assistive Devices: Hospital Bed and Walker Review of Systems See HPI Physical Exam NEUROLOGIC EXAMINATION: Mental Status:alert, oriented to time, place, person, normal recent memory, normal remote memory, normal attention span, normal concentration, normal language, and normal fund of knowledge Cranial Nerves: CN 2 - no visual defect on confrontation and pupils round, equal, reactive to light CN 3, 4, 6 - extra-ocular movements intact and no nystagmus CN 5 - facial sensation intact CN 7 - no facial asymmetry CN 8 - intact hearing CN 9, 10 - palate symmetric, normal gag CN 11 - good shoulder shrug CN 12 - tongue midline MOTOR: Strength was at least antigravity throughout, Mild drift on the left, and There were no abnormal movements SENSATION: intact GAIT: deferred COORDINATION: no ataxia with finger to nose testing and heel to guadalupe testing REFLEXES: cannot assess over telemedicine Results & Data Vital Signs (Past 12 Hours) Vital Signs Temp Pulse Pulse Resp BP BP BP 08/17/25 07:41 36.4 C L 52 L 16 118/72 08/17/25 07:22 56 L 08/17/25 04:20 56 L 08/17/25 04:12 36.4 C L 51 L 16 127/82 08/17/25 03:53 50 L 18 119/69 08/17/25 03:00 53 L 18 108/66 08/17/25 02:00 54 L 18 105/68 08/17/25 01:56 45 L 08/17/25 01:00 57 L 20 121/73 08/17/25 00:00 58 L 16 122/80 08/16/25 23:28 57 L 18 130/79 08/16/25 22:30 60 16 126/80 08/16/25 22:00 68 18 127/80 08/16/25 21:59 74 08/16/25 21:00 66 16 131/76 Pulse Ox O2 Del Method 08/17/25 07:41 98 Room Air 08/17/25 07:22 08/17/25 04:20 08/17/25 04:12 99 Room Air 08/17/25 03:53 99 Room Air 08/17/25 03:00 99 08/17/25 02:00 98 08/17/25 01:56 08/17/25 01:00 96 08/17/25 00:00 96 08/16/25 23:28 98 08/16/25 22:30 97 08/16/25 22:00 98 08/16/25 21:59 08/16/25 21:00 97 Laboratory Results Most recent lab results Calcium 8.8 mg/dl (8.6-10.3) 08/17/25 05:49 Magnesium 2.0 mg/dl (1.7-2.4) 08/16/25 18:26 Abnormal Lab Results 08/16/25 08/16/25 08/16/25 18:26 18:35 Unknown WBC 14.40 H RBC 5.62 Hgb 15.6 POC Hgb 16.3 Hct 44.5 POC Hct 48 MCV 79.2 L MCH 27.8 MCHC 35.1 RDW Std Deviation 37.2 RDW Coeff of Omid 13.1 Plt Count 340 MPV 9.4 Immature Gran % (Auto) 0.3 Neut % (Auto) 76.6 Lymph % (Auto) 16.3 [place] % (Auto) 6.4 Eos % (Auto) 0.1 Baso % (Auto) 0.3 Neut # (Auto) 11.02 H Lymph # (Auto) 2.35 [place] # (Auto) 0.92 H Eos # (Auto) 0.02 Baso # (Auto) 0.04 Immature Gran # (Auto) 0.05 PT 10.8 INR 1.0 APTT 25 PTT Ratio 0.9 VBG pH 7.53 H VBG pCO2 29 L VBG pO2 41 VBG HCO3 24 VBG O2 Saturation 74.8 VBG Base Excess 2.4 POC Sodium 141 Sodium 139 POC Potassium 3.4 Potassium 3.5 POC Chloride 104 Chloride 105 Carbon Dioxide 22 POC Total CO2 20 L Anion Gap 12 H POC Anion Gap 22.0 POC BUN 10 BUN 11 Creatinine 1.24 POC Creatinine 1.3 Est Cr Clr Drug Dosing 93.6 eGFR 80.71 BUN/Creatinine Ratio 8.9 L Glucose 100 H POC Glucose (other) 99 Osmolality 291 Calcium 9.5 POC Ioniz Calcium Vivi 1.14 Magnesium 2.0 Total Bilirubin 1.2 H AST 26 ALT 63 H Alkaline Phosphatase 96 Total Creatine Kinase 176 Troponin I High Sens 3.3 C-Reactive Protein 0.51 H Total Protein 8.2 Albumin 4.5 Globulin 3.7 Albumin/Globulin Ratio 1.2 Lipase 20 Procalcitonin 0.02 TSH 1.149 Urine Color Yellow Urine Appearance Cloudy A Urine pH >= 9.0 H Ur Specific [place] 1.020 Urine Protein 1+ H Urine Glucose (UA) Negative Urine Ketones Negative Urine Blood Trace H Urine Nitrite Negative Urine Bilirubin Negative Urine Urobilinogen Negative Ur Leukocyte Esterase Trace H Urine WBC (Auto) 0-5 Urine RBC (Auto) 11-20 H U Hyaline Cast (Auto) 0-2 U Epithel Cells (Auto) 0-2 Urine Bacteria (Auto) None Seen Urine Osmolality 762 Urine Comment Urine Opiates Screen Neg Ur Methadone, Qual Neg Urine Fentanyl Screen Neg Urine Barbiturates Neg Ur Phencyclidine (PCP) Neg U Amphetamin/Meth Scrn Neg MDMA (Ecstasy) Screen Neg U Benzodiazepines Scrn Neg Ur Cocaine Metabolite Neg U Marijuana (THC) Screen Neg 08/17/25 05:49 WBC 7.54 RBC 5.04 Hgb 13.8 L POC Hgb Hct 41.0 L POC Hct MCV 81.3 MCH 27.4 MCHC 33.7 RDW Std Deviation 39.5 RDW Coeff of Omid 13.5 Plt Count 295 MPV 9.7 Immature Gran % (Auto) 0.3 Neut % (Auto) 48.5 Lymph % (Auto) 39.7 [place] % (Auto) 10.1 Eos % (Auto) 1.1 Baso % (Auto) 0.3 Neut # (Auto) 3.67 Lymph # (Auto) 2.99 [place] # (Auto) 0.76 H Eos # (Auto) 0.08 Baso # (Auto) 0.02 Immature Gran # (Auto) 0.02 PT INR APTT PTT Ratio VBG pH VBG pCO2 VBG pO2 VBG HCO3 VBG O2 Saturation VBG Base Excess POC Sodium Sodium 142 POC Potassium Potassium 4.1 POC Chloride Chloride 111 H Carbon Dioxide 24 POC Total CO2 Anion Gap 7 POC Anion Gap POC BUN BUN 9 Creatinine 0.89 D POC Creatinine Est Cr Clr Drug Dosing 130.4 eGFR 118.97 BUN/Creatinine Ratio 10.1 Glucose 83 POC Glucose (other) Osmolality Calcium 8.8 POC Ioniz Calcium Vivi Magnesium Total Bilirubin AST ALT Alkaline Phosphatase Total Creatine Kinase Troponin I High Sens C-Reactive Protein Total Protein Albumin Globulin Albumin/Globulin Ratio Lipase Procalcitonin TSH Urine Color Urine Appearance Urine pH Ur Specific [place] Urine Protein Urine Glucose (UA) Urine Ketones Urine Blood Urine Nitrite Urine Bilirubin Urine Urobilinogen Ur Leukocyte Esterase Urine WBC (Auto) Urine RBC (Auto) U Hyaline Cast (Auto) U Epithel Cells (Auto) Urine Bacteria (Auto) Urine Osmolality Urine Comment Urine Opiates Screen Ur Methadone, Qual Urine Fentanyl Screen Urine Barbiturates Ur Phencyclidine (PCP) U Amphetamin/Meth Scrn MDMA (Ecstasy) Screen U Benzodiazepines Scrn Ur Cocaine Metabolite U Marijuana (THC) Screen Diagnostic Findings Abdomen/Pelvis CT 08/16/25 18:18 EXAMINATION: CT of the abdomen and pelvis performed after the administration of IV contrast TECHNIQUE: Helical CT images from the lung bases through the symphysis pubis were obtained with contrast. Coronal and sagittal reformatted images were generated at a workstation for further assessment. Dose reduction techniques were achieved by using automatic exposure control and/or adjustment of mA and/or kV according to patient size and/or use of iterative reconstruction technique. COMPARISON: None HISTORY: Abdominal pain FINDINGS: Lower chest: No consolidation. No pleural effusion or pneumothorax. Liver: No suspicious liver lesions. Portal veins appear patent. Gallbladder: No gallstones. No evidence of acute cholecystitis. Spleen: Normal size. Pancreas: No suspicious pancreatic lesions. The pancreatic duct is not dilated. Adrenal glands: No adrenal nodules. Kidneys: Obstructing 10 x 6 mm stone at the right ureteropelvic junction. There is moderate right hydronephrosis, as well as right renal pelvic urothelial thickening and hyperenhancement. There is surrounding inflammatory fat stranding. Right renal swelling and decreased enhancement. Few additional tiny nonobstructing right renal stones are seen. Normal left kidney. Bladder / Pelvic organs: Unremarkable. Bowel: No bowel obstruction. No abnormal bowel wall thickening. The appendix is unremarkable. Lymph nodes: No retroperitoneal, mesenteric, or pelvic lymphadenopathy. Peritoneum / Retroperitoneum: No free fluid or air within the abdomen. Vessels: No infrarenal aortic aneurysm. Bones and soft tissues: No suspicious lesion in the bones. IMPRESSION: 10 x 6 mm stone at the right ureteropelvic junction. There is moderate right hydronephrosis, as well as right renal pelvic urothelial thickening and hyperenhancement. There is surrounding inflammatory fat stranding. Electronically signed by Pipe Bautista 08-16-2025 7:40 PM Shoulder X-Ray 08/16/25 18:18 Exam: Right shoulder. Reason for exam: Trauma Previous studies: None FINDINGS: No acute fracture, dislocation or destructive lesion noted. IMPRESSION: Negative for acute bony trauma right shoulder. Electronically signed by Vignesh Ruelas 08-16-2025 8:41 PM Shoulder X-Ray 08/16/25 18:18 Exam: Left shoulder. Reason for exam: Trauma Previous studies: None FINDINGS: Marked abnormal widening of the acromioclavicular joint with an irregular interposed bony fragment. The age of this abnormality is uncertain. Could represent acute fracture and AC separation versus old separation injury with dystrophic ossification. Correlation with any current clinical tenderness recommended. The glenohumeral articulation appears intact. IMPRESSION: Markedly abnormal appearance of the acromioclavicular joint. The joint space is markedly widened with penciling of the distal clavicle and interposed irregular bony fragment. Findings might represent previous and/or current acromioclavicular traumatic separation with fracture fragment versus dystrophic calcification. Possibility of postsurgical changes considered as well. Correlation to clinical history and current point of tenderness recommended. Further definitive imaging evaluation could be obtained with MRI study. Electronically signed by Vignesh Ruelas 08-16-2025 8:[address] 08/16/25 18:19 CT cervical spine without IV contrast History: Trauma Comparison: None Technique: Using multidetector thin collimation helical acquisition technique, axial, coronal and sagittal CT images through the cervical spine were obtained without intravenous contrast. Dose reduction techniques were achieved by using automatic exposure control and/or adjustment of mA and/or kV according to patient size and/or use of iterative reconstruction technique. Findings: The cervical vertebrae are normally aligned. Straightened cervical lordosis. No acute fracture or subluxation. No prevertebral edema. There is no disc height narrowing at any level. The findings on a level by level basis are as follows: C2-3: No spinal canal or neural foraminal stenosis C3-4: No spinal canal or neural foraminal stenosis C4-5: No spinal canal or neural foraminal stenosis C5-6: No spinal canal or neural foraminal stenosis C6-7: No spinal canal or neural foraminal stenosis C7-1: No spinal canal or neural foraminal stenosis No abnormality of the paraspinous soft tissues. Impression: No acute fracture or traumatic subluxation. Electronically signed by Pipe Bautista 08-16-2025 7:36 PM Chest CTA 08/16/25 18:19 CT pulmonary angiogram with IV contrast History: Chest pain COMPARISON: None TECHNIQUE: CT angiography of the chest was performed without IV contrast followed by IV contrast, including 3D post processing CTA image reconstruction. Dose reduction techniques were achieved by using automatic exposure control and/or adjustment of mA and/or kV according to patient size and/or use of iterative reconstruction technique. FINDINGS: Diagnostic quality: Adequate There is no evidence for pulmonary embolism. The heart is not enlarged. There is no pericardial effusion. There are no abnormally enlarged hilar or mediastinal lymph nodes. The central tracheobronchial tree is clear. The lungs are clear. There is no pleural effusion. Limited visualized upper abdomen. No destructive osseous changes are seen. IMPRESSION: No evidence for pulmonary embolism. Electronically signed by Pipe Bautista 08-16-2025 7:[address] 08/16/25 18:19 CT head without contrast History: Seizure Comparison: None Technique: Using multidetector thin collimation helical acquisition technique, axial, coronal and sagittal CT images from the skull base to the vertex were obtained without intravenous contrast. Dose reduction techniques were achieved by using automatic exposure control and/or adjustment of mA and/or kV according to patient size and/or use of iterative reconstruction technique. Findings: No intracranial hemorrhage, mass-effect, or midline shift. The ventricles are proportionate to the cerebral sulci. The giron to white matter differentiation of the cerebral hemispheres is preserved. The basal cisterns are patent. The visualized paranasal sinuses are clear. Mastoid air cells are clear. Impression: No acute intracranial pathology. Electronically signed by Pipe Bautista 08-16-2025 7:33 PM Brain MRI 08/16/25 22:01 Exam(s): MRI HEAD W/WO Contrast IV Amt: 8.5ml gadavist EXAM: MR Head Without and With Intravenous Contrast CLINICAL HISTORY: Reason for exam: sz. OTHER: Other Notes: seizure today 8.5ml gadavist, no adverse events *pt speaks only bermudian, used supervisor drapery hanging to screen* best scans possible due to metal artifact, pt has braces TECHNIQUE: Magnetic resonance images of the head/brain without and with intravenous contrast in multiple planes. CONTRAST: Patient received 8.5ml gadavist of IV contrast COMPARISON: No relevant prior studies available. FINDINGS: This study is limited secondary motion artifact and metallic artifact from dental amalgam. Brain: Unremarkable. No mass. No hemorrhage. No acute infarct. The flow voids at the base the brain are intact. No evidence of mesial temporal sclerosis, heterotopic. Matter cortical dysplasia. No evidence of abnormal enhancement. Ventricles: Unremarkable. No ventriculomegaly. Bones/joints: Unremarkable. No acute fracture. Sinuses: Unremarkable as visualized. No acute sinusitis. Mastoid air cells: Unremarkable as visualized. No mastoid effusion. Orbits: Unremarkable as visualized. IMPRESSION: No evidence of acute intracranial pathology. No etiology for patient's symptoms identified. Electronically signed by: Liz Worley MD 08/17/25 02:09 AM
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
--- NOTE | 2025-08-17 11:50 | Hospitalist Progress Note ---
Date of Service August 17, 2025 Assessment & Plan (1) Abdominal pain: (2) Hydronephrosis with obstructing calculus: (3) Left shoulder pain: Plan: #Syncope -LOC prior to c/o severe flank/abd pain -Carroll lightheaded prior to LOC -No history of seizures. no tongue lacerations. 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 This included personally reviewing all current laboratories and imaging studies, medical reconciliation, outpatient chart review and discussion with specialists Admission and Anticipated Discharge Date Admission Date: August 17, 2025 Subjective seen and examined. official translating services used. He feels well today without any complaints. Patient denies F/C, CP, palpitations, SOB, dyspnea, abd pain, N/V/D Physical Exam Physical Exam: Vitals and labs reviewed General: Well appearing, NAD HEENT: EOMI, PERRLA No tongue lacerations Neck: Supple Cardiac: RRR no rubs gallops or murmurs Lungs: CTA no rhonchi wheezing or rales Abd: S NT ND BS positive : no gil MSK: Full ROM. No obvious deformities Ext: No Edema cyanosis Skin: Warm, Dry Neuro: AOx3 No focal deficits. Psych: Normal Mood Results & Data Results & Data Vital Signs (Past 12 Hours) Vital Signs Temp Pulse Pulse Resp BP BP BP 08/17/25 07:41 36.4 C L 52 L 16 118/72 08/17/25 07:22 56 L 08/17/25 04:20 56 L 08/17/25 04:12 36.4 C L 51 L 16 127/82 08/17/25 03:53 50 L 18 119/69 08/17/25 03:00 53 L 18 108/66 08/17/25 02:00 54 L 18 105/68 08/17/25 01:56 45 L 08/17/25 01:00 57 L 20 121/73 08/17/25 00:00 58 L 16 122/80 Pulse Ox O2 Del Method 08/17/25 07:41 98 Room Air 08/17/25 07:22 08/17/25 04:20 08/17/25 04:12 99 Room Air 08/17/25 03:53 99 Room Air 08/17/25 03:00 99 08/17/25 02:00 98 08/17/25 01:56 08/17/25 01:00 96 08/17/25 00:00 96 Laboratory Results Abnormal lab results 08/16/25 08/16/25 08/16/25 Range/Units 18:26 18:35 Unknown WBC 14.40 H (4.8-10.8) K/ul Hgb (14.0-18.0) g/dL Hct (42.0-52.0) % MCV 79.2 L (80.0-100.0) fL Neut # (Auto) 11.02 H (1.40-6.50) K/uL Love # (Auto) 0.92 H (0.11-0.59) K/uL VBG pH 7.53 H (7.36-7.41) VBG pCO2 29 L (38-50) mmHg Chloride (98-107) mmol/L POC Total CO2 20 L (24-31) mmol/L Anion Gap 12 H (3-11) BUN/Creatinine Ratio 8.9 L (10-20) Glucose 100 H (70-99(Fasting)) mg/dl Total Bilirubin 1.2 H (0.2-1.0) mg/dl ALT 63 H (7-52) U/L C-Reactive Protein 0.51 H (0-0.5) mg/dl Urine Appearance Cloudy A (Clear) Urine pH >= 9.0 H (4.5-7.5) Urine Protein 1+ H (Negative) Urine Blood Trace H (Negative) Ur Leukocyte Esterase Trace H (Negative) Urine RBC (Auto) 11-20 H (0-2) /hpf 08/17/25 Range/Units 05:49 WBC (4.8-10.8) K/ul Hgb 13.8 L (14.0-18.0) g/dL Hct 41.0 L (42.0-52.0) % MCV (80.0-100.0) fL Neut # (Auto) (1.40-6.50) K/uL Love # (Auto) 0.76 H (0.11-0.59) K/uL VBG pH (7.36-7.41) VBG pCO2 (38-50) mmHg Chloride 111 H (98-107) mmol/L POC Total CO2 (24-31) mmol/L Anion Gap (3-11) BUN/Creatinine Ratio (10-20) Glucose (70-99(Fasting)) mg/dl Total Bilirubin (0.2-1.0) mg/dl ALT (7-52) U/L C-Reactive Protein (0-0.5) mg/dl Urine Appearance (Clear) Urine pH (4.5-7.5) Urine Protein (Negative) Urine Blood (Negative) Ur Leukocyte Esterase (Negative) Urine RBC (Auto) (0-2) /hpf
--- NOTE | 2025-08-17 12:28 | Electrocardiogram Report ---
Test Reason : Blood Pressure : */* mmHG Vent. Rate : 91 BPM Atrial Rate : 91 BPM P-R Int : 144 ms QRS Dur : 88 ms QT Int : 346 ms P-R-T Axes : 76 74 62 degrees QTcB Int : 425 ms Normal sinus rhythm Normal ECG No previous ECGs available Confirmed by Albert Cox ([id number]) on 08/17/2025 12:27:37 PM Referred By: [facility] Confirmed By: Albert Cox
--- NOTE | 2025-08-17 12:47 | Anesthesiology Consultation ---
Date of Service August 17, 2025 Assessment & Plan (1) Encounter for pre-operative examination: Chart Review Chart Review: Acceptable Risk for Surgery History Height/Weight Height: 5 ft 11 in Weight: 83.4 kg Allergies Allergy/AdvReac Type Severity Reaction Status Date / Time No Known Allergies Allergy Unverified 08/16/25 21:05 Medications Home Medications Medication Instructions Recorded Confirmed Last Taken No Known Home Medications 08/16/25 08/16/25 Unknown Active Medications Generic Name Dose Route Start Last Admin Trade Name Freq PRN Reason Stop Dose Admin Oxycodone HCl 5 mg 08/16/25 20:39 08/17/25 09:37 Oxycodone Hcl Ir 5 Mg Tab (Immediate Release) PO 08/30/25 20:38 5 mg Q4H PRN Administration Pain Past Medical History Medical History Seizure-like activity No pertinent past medical history Past Surgical History Surgical History No pertinent past surgical history Social History Smoking Status: Former smoker Smoking End Date: 3 months ago Hx Alcohol Use: No Hx Substance Use: No Physical Exam Vital Signs Last Vital Signs Temp 36.5 C 08/17/25 12:09 Pulse 50 L 08/17/25 12:09 Resp 16 08/17/25 12:09 BP 114/75 08/17/25 12:09 Pulse Ox 99 08/17/25 12:09 O2 Del Method Room Air 08/17/25 12:09 Testing Laboratory Results 08/17/25 05:49 08/17/25 05:49 PT 10.8 Seconds (9.0-12.0) 08/16/25 18:26 INR 1.0 (0.9-1.1) 08/16/25 18:26 APTT 25 Seconds (21-31) 08/16/25 18:26 Urine Color Yellow 08/16/25 Unknown Urine Appearance Cloudy (Clear) A 08/16/25 Unknown Urine pH >= 9.0 (4.5-7.5) H 08/16/25 Unknown Ur Specific [place] 1.020 (1.000-1.030) 08/16/25 Unknown Urine Protein 1+ (Negative) H 08/16/25 Unknown Urine Glucose (UA) Negative (Negative) 08/16/25 Unknown Urine Ketones Negative (Negative) 08/16/25 Unknown Urine Nitrite Negative (Negative) 08/16/25 Unknown Ur Leukocyte Esterase Trace (Negative) H 08/16/25 Unknown Urine WBC (Auto) 0-5 /hpf (0-5) 08/16/25 Unknown Urine RBC (Auto) 11-20 /hpf (0-2) H 08/16/25 Unknown U Hyaline Cast (Auto) 0-2 /lpf (0-2) 08/16/25 Unknown U Epithel Cells (Auto) 0-2 /hpf (0-2) 08/16/25 Unknown Urine Bacteria (Auto) None Seen (None Seen) 08/16/25 Unknown Electrocardiogram Date: 08/16/25 Findings: + NSR @ (91)
[2025-08-17] MEDS ORDERED: ONDANSETRON INJ 2 MG/ML 2 ML VIAL ONE (13:01)
[2025-08-17] MEDS ORDERED: PROPOFOL IV EMULSION 10 MG/ML 20 ML VIAL IV ONE (13:01)
[2025-08-17] MEDS ORDERED: MIDAZOLAM HCL 1 MG/ML 2ML VIAL ONE (13:01)
[2025-08-17] MEDS ORDERED: DEXAMETHASONE SOD INJ 4 MG/ML VIAL ONE (13:01)
[2025-08-17] MEDS ORDERED: LIDOCAINE 2% 2 ML VIAL/AMP(20MG/ML) INFIL ONE (13:01)
[2025-08-17] MEDS ORDERED: PROMETHAZINE HCL 6.25 MG in SODIUM CHLORIDE 0.9% 50 ML IV PRN (13:07)
[2025-08-17] MEDS ORDERED: ATROPINE SULFATE 0.1 MG/ML 10ML SYR IV PRN (13:07)
--- NOTE | 2025-08-17 13:10 | Urology Consultation ---
Date of Consultation August 17, 2025 Assessment & Plan (1) Ureteropelvic junction (UPJ) obstruction, right: (2) Right ureteral stone: (3) Hydronephrosis: (4) Left shoulder pain: (5) Abdominal pain: (6) Hydronephrosis with obstructing calculus: (7) Acute pain of left shoulder: (8) Seizure-like activity: Plan Patient presented with fall secondary to seizure-like activity for syncope. Have been evaluated and worked up by medicine additionally had been assessed due to traumatic injury. Patient being observed by both neurology and orthopedics. Additionally patient has been monitored by the medical team who admitted him. Patient found to have obstructing stone and was having increasing abdominal pain. Syncopal episode/acute illness possibly secondary to obstructing stone causing severe systemic effect. Patient is a prisoner at the [facility]. Additionally only speaks Macedonian. A translation service through the [employer] system was utilized in order to communicate with the patient. Patient independently assessed, examined, interviewed, and evaluated. Patient's vitals and labs were all reviewed. Pertinent values in the HPI and plan section. White count 7.54. Creatinine 0.89. Hemoglobin 13.8. Patient's vitals were also reviewed. Currently temperature 36.5 oxygen saturation 99% on room air. Blood pressure 114/75. Pulse of 50. Respiration 16. Imaging was reviewed interpreted by myself. Patient with large right approximately 1 cm obstructing stone in the UPJ/proximal ureter with significant hydronephrosis significant perinephric stranding and significant thickening of the proximal ureter. Suspicion for near complete obstruction of the right kidney. Otherwise agree with read. Vitals were reviewed. Discussed findings extensively with patient and family. Reviewed with nurse as well as consulting team. Patient's complicated medical and surgical history was reviewed and summarized above. Patient's surgical, medical, social, and family history were all reviewed with pertinent values as above. Discussed patient's current diagnosis as well as concerns and issues. Reviewed different options moving forward. Discussed potential risks and benefits as well as possible options and concerns. Reviewed potential surgical options and interventions. Discussed potential issues and concerns related to intervention. Risk and benefits were discussed extensively with patient and any available family. Discussed potential risks re lated to anesthesia. Discussed risks of bleeding infection and injury. No no major history. Patient's most recent episode that led to the admission had been evaluated by neurology has also been monitored by medicine. At this point it appears to possibly been a syncopal episode secondary to possible issues with pain systemic effects from stone and other issues. Reviewed extensively with patient. Discussed possibility of developing more severe infection discussed possible increasing pain and bother with obstruction and additionally discussed possible damage to the kidney. Reviewed concerns and issues. Discussed potential options moving forward. Discussed size of stone as well as the significant amount of inflammation and obstruction that can be seen on the imaging. May not be amendable to stone treatment acutely. Did discuss this with patient options to move forward for stent placement with possible treatment of stone afterwards. Patient had multiple questions. Answered all questions and concerns. Discussed possible options moving forward with intervention. Also discussed option for possible observation. Reviewed potential for increasing issues especially with his already severe episode and significant traumatic injury secondary to the syncopal episode. Risks and benefits discussed at length for procedure. These include bleeding, infection, injury to surrounding tissues or organs, and risks associated with anesthesia. Patient states understanding and agrees to proceed. Will sign consent and schedule. Thoroughly reviewed above and was able to utilize the translation service for confirmation of patient understanding of risks and benefits. Will plan to proceed with cystoscopy with right stent placement. History of Present Illness Attending Physician: Sawyer Ricardo, History of Present Illness New consultation for patient with episode of syncope versus seizure activity and significant fall. Patient is a prisoner at the [facility] [place]. Patient only speaks Macedonian. A translation service device was utilized for the communication with the patient as well as communication with the guards and nursing of his recent issues. Patient had been admitted for evaluation and had undergone imaging secondary to fall found to have significant obstructing stone in the right kidney with significant hydronephrosis and perinephric stranding. Patient was evaluated by medicine. [place] that this was likely a syncopal episode possibly due to the obstructing stone and systemic reaction. Patient having issues with stone including discomfort, obstruction, and ill feelings. Patient developed sudden onset of pain into flank going down and radiating into groin and back in waves comes and goes. Can be severe at times. Discussed and reviewed patient's family history for any history of stone disease. Also, discussed patient's medical surgery history especially related to any history of urinary issues or stone disease. Patient was admitted and is undergoing observation. Allergies Allergy/AdvReac Type Severity Reaction Status Date / Time No Known Allergies Allergy Unverified 11/14/25 21:05 Home Medications Medication Instructions Recorded Confirmed Type No Known Home Medications 08/16/25 08/16/25 History Patient History Medical History Seizure-like activity No pertinent past medical history Surgical History No pertinent past surgical history Social History Smoking Status: Former smoker Tobacco Type: E-cigarettes / Vaping Smoking End Date: 3 months ago; Second Hand Exposure: No; Tobacco Cessation Education Requested by Patient: No Hx Alcohol Use: No Hx Substance Use: No Preferred Language: Macedonian Communication Ability: Effective In Processing Instructor Required: Yes Beliefs That Will Affect Care: None Current Living Situation: Other Current Living Situation Comment: [facility] [employer] [facility] Feels Safe at Home: Declines to Answer Assistive Devices: Hospital Bed and Walker Review of Systems Review of Systems: All systems reviewed & are unremarkable except as noted in HPI & below Physical Exam Physical Exam: General: Alert and oriented x 3 in no acute distress. Restrained. Patient is well nourished and well kept. HEENT: Normocephalic Atraumatic. Inspection normal. Cranial Nerves 2-12 Grossly intact. Nares are clear. Neck is supple. Normal inspection of face. Normal inspection of neck. Neurologic: No deficits on inspection. Baseline for motor function and sensory. Psychologic: Normal affect. Respiratory: Nonlabored. No use of accessory muscles. No tachypnea or dyspnea. Cardiovascular: No tachycardia Skin: [place] and Dry. No rashes or visible lesions. Extremities: Upper extremity injury secondary to fall. Otherwise moving without issues. No motor deficits on inspection Lymphatics: No edema Abdomen: Soft Non-distended. No rebound or guarding. Results & Data Vital Signs (Past 12 Hours) Vital Signs Temp Pulse Pulse Resp BP BP BP 08/17/25 12:09 36.5 C 50 L 16 114/75 08/17/25 07:41 36.4 C L 52 L 16 118/72 08/17/25 07:22 56 L 08/17/25 04:20 56 L 08/17/25 04:12 36.4 C L 51 L 16 127/82 08/17/25 03:53 50 L 18 119/69 08/17/25 03:00 53 L 18 108/66 08/17/25 02:00 54 L 18 105/68 08/17/25 01:56 45 L Pulse Ox O2 Del Method 08/17/25 12:09 99 Room Air 08/17/25 07:41 98 Room Air 08/17/25 07:22 08/17/25 04:20 08/17/25 04:12 99 Room Air 08/17/25 03:53 99 Room Air 08/17/25 03:00 99 08/17/25 02:00 98 08/17/25 01:56 PG Care Time/CCT Total # of Minutes Spent Total Time Spent with Patient: Total time spent is greater than 50% in coordination of care (as documented) at patient's floor/unit and/or counseling patient: Coding Level of Care Code 72937 IN/OBS CONSULT LVL 5,80M Diagnoses Ureteropelvic junction (UPJ) obstruction, right N13.5 Right ureteral stone N20.1 Hydronephrosis N13.30 Left shoulder pain M25.512 Abdominal pain R10.9 Hydronephrosis with obstructing calculus N13.2 Acute pain of left shoulder M25.512 Seizure-like activity R56.9
[2025-08-17] MEDS: DIATRIZOATE MEGLUMINE 30% 100ML VIAL INSTIL ONE (13:40)
--- NOTE | 2025-08-17 13:57 | Operative Report ---
PG Post Operative Report Pre & Post Diagnosis Operation Date: 08/17/25 14:00 Pre-Op Diagnosis: Ureteropelvic junction (UPJ) obstruction, right Right ureteral stone Hydronephrosis Hydronephrosis with obstructing calculus: Post-Op Diagnosis: Ureteropelvic junction (UPJ) obstruction, right Right ureteral stone Hydronephrosis Hydronephrosis with obstructing calculus: I identified the patient and participated in the time-out.: Yes Procedure Operation Date: 08/17/25 14:00 Actual Procedures p Cystoscopy with right Retrograde Pyelogram, Right Ureteral Stent Insertion, aspiration(Right) - Will Estrada DO Surgeon Will Estrada, II, DO Ophthalmic Surgical Assistant None Estimated Blood Loss 1 Findings Consistent with Post-Op Diagnosis Stent placed in good position. Debris in right urine specimen/aspiration Large stone easily visualized on fluoroscopy. Appears to be in region of UPJ. Specimens Urinary right kidney Drains 6 Fr Multilength Anesthesia Type MAC Complications none Disposition Disposition: Recovery Room Indications Patient with obstruction. Risks and benefits discussed at length. Description of Procedure Patient was consented and brought back to the operating room. Patient was placed under anesthesia in the supine position and moved to the dorsal lithotomy position. Patient was prepped and draped in the regular sterile fashion. A time out was completed. A 30degree Cystoscope was placed into the bladder and the entire bladder was examined. The UO's were identified. The UO was cannulized with a catheter which was advanced to the proximal ureter. The large stone was easily visualized on fluoroscopy. The 5 [place] open-ended catheter was able to advance into the renal pelvis with some manipulation. Urine was able to be aspirated and sent for culture. At this point a retrograde pyelogram was completed. A wire was then placed. With the wire in place, a 6 Fr Double J stent was placed. It was confirmed with fluoroscopy. With the stent in place, the bladder was emptied. The scope was removed. The patient was cleaned, aroused from anesthesia, and transferred to the pacu in stable condition having tolerated the procedure well with no complications. I was present and participated in all aspects of the procedure. The patient will be monitored in the PACU until transferred. Will plan to maintain stent for 1 to 2 weeks with plans for possible interventi on. As stone was very well-visualized on fluoroscopy may be candidate for ESWL. Additionally consider options for ureteroscopy for treatment. I attest to the content of the Intraoperative Record and any orders documented therein. Any exceptions are noted below.
--- NOTE | 2025-08-17 13:57 | Fluoroscopy Report ---
INTRAOPERATIVE RADIOGRAPHS CLINICAL HISTORY: Right ureteral stent placement. Fluoro time: 41 seconds Ka,r: 9.01 mGy FINDINGS: 4 spot fluoroscopic views of the right abdomen are correlated with abdominal CT dated 08/16. The initial image shows a wire projecting over the right renal pelvis. Injected contrast shows right-sided hydronephrosis. The final images show the proximal and distal ends of a right ureteral s tent in appropriate position. IMPRESSION: Intraoperative images from a right ureteral stent placement procedure as above. Electronically signed by: Chinmay Abmrosio M.D. 08/17/2025 1:56 PM
--- NOTE | 2025-08-17 14:53 | Anesthesiology Progress Note ---
Date of Service August 17, 2025 Anesthesia Post Procedure Vital Signs Vital Signs: Temp Pulse Pulse Resp BP BP BP 08/17/25 14:45 70 16 143/99 H 08/17/25 14:35 72 12 113/90 08/17/25 14:25 73 12 117/89 08/17/25 14:15 36.3 C L 80 18 105/71 08/17/25 14:05 60 12 103/52 L 08/17/25 13:55 36.4 C L 67 12 106/53 L 08/17/25 13:05 75 08/17/25 12:09 36.5 C 50 L 16 114/75 08/17/25 07:41 36.4 C L 52 L 16 118/72 08/17/25 07:22 56 L 08/17/25 04:20 56 L 08/17/25 04:12 36.4 C L 51 L 16 127/82 08/17/25 03:53 50 L 18 119/69 08/17/25 03:00 53 L 18 108/66 08/17/25 02:00 54 L 18 105/68 08/17/25 01:56 45 L 08/17/25 01:00 57 L 20 121/73 08/17/25 00:00 58 L 16 122/80 08/16/25 23:28 57 L 18 130/79 08/16/25 22:30 60 16 126/80 08/16/25 22:00 68 18 127/80 08/16/25 21:59 74 08/16/25 21:00 66 16 131/76 08/16/25 20:31 79 18 133/87 08/16/25 20:02 77 18 128/83 08/16/25 20:02 08/16/25 18:57 86 08/16/25 18:37 85 15 143/96 H 08/16/25 18:25 37.1 C 95 H 21 169/109 H Pulse Ox O2 Del Method O2 Flow Rate 08/17/25 14:45 96 Room Air 08/17/25 14:35 96 Room Air 08/17/25 14:25 97 Room Air 08/17/25 14:15 98 Room Air 08/17/25 14:05 99 Oxymask 6 08/17/25 13:55 99 Oxymask 6 08/17/25 13:05 08/17/25 12:09 99 Room Air 08/17/25 07:41 98 Room Air 08/17/25 07:22 08/17/25 04:20 08/17/25 04:12 99 Room Air 08/17/25 03:53 99 Room Air 08/17/25 03:00 99 08/17/25 02:00 98 08/17/25 01:56 08/17/25 01:00 96 08/17/25 00:00 96 08/16/25 23:28 98 08/16/25 22:30 97 08/16/25 22:00 98 08/16/25 21:59 08/16/25 21:00 97 08/16/25 20:31 98 08/16/25 20:02 97 Room Air 08/16/25 20:02 Room Air 08/16/25 18:57 08/16/25 18:37 98 Room Air 08/16/25 18:25 100 Room Air Pain Intensity Left Shoulder: Pain Intensity: 5 Right Lower Abdomen: Pain Intensity: 5 Transfer of Care Handoff Completed per policy Notes Mental Status: alert / awake / arousable Patient Amnestic to Procedure: Yes Nausea / Vomiting: adequately controlled Pain: adequately controlled Airway Patency, RR, SpO2: stable & adequate BP & HR: stable & adequate Hydration State: stable & adequate Anesthetic Complications: no major complications apparent
[2025-08-17] MEDS: ACETAMINOPHEN 325 MG TAB PO PRN (23:45)
[2025-08-17] MEDS: PHENAZOPYRIDINE HCL 100 MG TAB PO PRN (23:45)
[2025-08-17] MEDS: LACTATED RINGER'S 1,000 ML IV ONE (23:51)
[2025-08-17] MEDS: MoRPHine SULFATE 4 MG/ML 1 ML CARP\\VIAL IV PRN (23:52)
[2025-08-17] MEDS: KETOROLAC TROMETHAMINE 15 MG/ML VIAL IV ONE (23:52)
[2025-08-18 03:54] VITALS: O2SAT 95
[2025-08-18] MEDS: LORazepam 0.5 MG TAB PO PRN (05:00)
[2025-08-18 07:58] VITALS: RESP 16; TEMP 97.7
--- NOTE | 2025-08-18 09:16 | Discharge Summary ---
Discharge Summary Date of Service August 18, 2025 Principal Dx & Hospital Course #1 = Principal Diagnosis (1) Abdominal pain: (2) Hydronephrosis with obstructing calculus: (3) Left shoulder pain: Mr Carvajal is a pleasant 30M who presented from [facility] for syncopal episode and new R 10mm kidney stone . He is [place] speaking and an ethanol operations manager was used during each conversation with patient, including on day of discharge. He presented for a "shaking episode" and brief LOC. This was in the setting of severe flank/abdominal pain. He had prodromal symptoms including lightheadedness, flushing prior to LOC. This is consistent with a vasovagal episode due to pain from kidney stone. Regardless, MRI brain was ordered on admission which was normal. Neurology evaluated very early the following morning and recommended EEG and to continue keppra until EEG results. Neuro said it can be done as OP. there are no EEG capabilities here over the weekend. No further episodes. Regarding his new kidney stone, urology consulted and placed a R stent on 08/17. There was no renal dysfunction. Pain much improved today per patient. Flomax started. Urology requests for stent removal in office in 1-2 weeks as OP. vitals stable on day of discharge. He will return to [facility]. updated guards at bedside who stated he would get the needed medical care at the facility. #Syncope -LOC prior to c/o severe flank/abd pain -Wheeling lightheaded prior to LOC -No history of seizures. no tongue lacerations. no incontinence -Low suspicion for seizure, likely vasovagal syncope due to pain -EKG NSR -MRI brain without acute pathology -CTH images reviewed, No acute pathology Plan -D/w Dr Pollack, agree this is likely vasovagal syncope -Neuro does recommend an EEG whether OP or this admission -Continue keppra for now, DC if EEG is normal #Kidney stone -10mc x 6mm R kidney stone, personally reviewed CT images -Likely causing his R flank pain -No s/s infection -No renal dysfunction #L clavicle fracture with non union -Secondary to old trauma -Ortho evaluated, no immediate need for surgery -Tylenol for pain I spent a total of 38 minutes coordinating, documenting, and providing care for this patient excluding time spent in the performance of separately billed services. This included personally reviewing all current laboratories and imaging studies, medical reconciliation, outpatient chart review and discussion with specialists Notes For Next Care Provider Medication Changes From Visit krishna added. DC if EEG is normal Flomax tylenol and advil added for mild, moderate pain from kidney stone. Admission HPI Per Admitting Provider Patient is 30 year old male without significant PMH presented to ER from [facility] for reported shaking episode today. Patient is [place] speaking and ethanol operations manager used through language line. Patient reports this morning he woke up with diffuse abdominal pain, nausea, vomiting. He describes the abdominal pain as constant ache with intermittent stabbing that radiated up to chest. Rated pain 10 out of 10 on pain scale. He states he was also feeling dizzy. He reports trying to get evaluated by medical today at facility. He states the next thing he remembers is waking up with a lot of people around him. Denies loss control of bowel or bladder. Reports his tongue feels sore but denies any noted bleeding or tongue lacerations. This provider called and discussed patient with staff at [facility]. They report that patient was attempting to call for medical to be seen and asking officers to go to sick call when he "went down" and had "shaking of body and was not responding". Report states when medical came to evaluate patient his O2 sats noted dropped into 60's and his BSG was 114. When arrived to medical carpenter he only could say "yes or no" and then became tearful, and more responsive and he was able to follow commands. Patient denies diarrhea or constipation. He took Pepto-bismol from another detainee this morning without relief. Patient reports chronic left shoulder pain from prior injury. He reports past several days left shoulder pain has been increasing, worse with sleeping on it at night. He reports limited range of motion of left shoulder secondary to pain. He states past 1-2 weeks having trouble breathing at night only. Denies fever/chills, diaphoresis, diarrhea, constipation, hematemesis, melena, hematochezia, JONES, vision changes, palpitations, cough, sore throat, rhinorrhea, paresthesias, weakness, extremity edema, rashes, dysuria, urinary frequency, urinary retention, hematuria. Per [facility] staff patient has been at [facility] since 06/2025 and had no prior medical evaluations or PMH. Patient denies history prior medical problems or surgical history. Denies significant FH including history of seizure or kidney stones. Reports prior history of vaping. Denies ETOH, illicit drug use. Currently patient reports is feeling improved. States nausea better. In ER given 1L NSS, Zofran 4 mg IV, morphine 4 mg IV, Keppra 2000 mg IV. He reports pain is now 4 out of 10 on pain scale and feels comfortable lying supine in bed. Discharge Exam Vitals and labs reviewed General: Well appearing, NAD HEENT: EOMI, PERRLA Neck: Supple Cardiac: RRR no rubs gallops or murmurs Lungs: CTA no rhonchi wheezing or rales Abd: S NT ND BS positive : Deffered MSK: Full ROM. No obvious deformities Ext: No Edema cyanosis Skin: Warm, Dry Neuro: AOx3 No focal deficits. Psych: Normal Mood Updated Medication List Medication Instructions Recorded Confirmed Type acetaminophen 325 mg tablet 650 mg (2 x 325 mg) PO QID PRN 08/18/25 Rx mild pain (scale score 1-4) 10 days #30 tabs ibuprofen 600 mg tablet 600 mg PO Q8H PRN moderate pain 08/18/25 Rx (scale score 5-6) #30 tabs levetiracetam 500 mg tablet 500 mg PO BID 2 weeks #28 tabs 08/18/25 Rx (Keppra) tamsulosin 0.4 mg capsule (Flomax) 0.4 mg PO DAILY #30 caps 08/18/25 Rx Hospital Stay Data Consultations 08/16/25 20:05 ED Decision to Admit Stat 08/16/25 22:01 Consult Neurology Routine 08/17/25 04:11 Consult Urology Routine 08/17/25 04:19 Consult Orthopedic Surgery Routine Procedures Performed Operation Date: 08/17/25 14:00 Actual Procedures p Cystoscopy Retrograde Pyelogram, Right Ureteral Stent Insertion, aspiration(Right) - Will Mcqueen, Diagnostic Imagining Performed 08/16/25 18:18 CT abd pelvis IV con only Stat 08/16/25 18:19 CT angio chest PE protocol Stat CT cervical spine wo con Stat CT head/brain wo con Stat 08/16/25 22:01 MRI Brain [MR brain seizure wo/w con] Stat 08/17/25 FL retrograde includes kub Routine Pending Results Patient Have Any Pending Studies at Discharge: No Discharge Instructions Given to Patient (Per Discharging Provider) Please follow up with Dr will mcqueen for stent removal in 1-2 weeks. Please obtain EEG in 1-2 weeks. Per neurology, continue keppra until EEG is completed and if EEG is without epileptiform activity, can then DC keppra. Total Time Total Time Spent Total Time Spent (In Minutes): 38
[2025-08-18 10:05] VITALS: BP 121/70; PULSE 58
== END 2025-08-18 10:47 | DRG 660 ==
LOC: ED 18:14 → 2W 08-17 01:54